=== PATIENT | female | born 1945 | race Hispanic/Latino ===

== ENCOUNTER 2025-10-05 17:04 | Emergency (ER) | payer MEDICARE, BC ==
[~2025-10-05] VITALS: Ht 157.5 cm; Wt 76.2 kg
--- NOTE | 2025-10-05 19:22 | HMCIMG ---
EXAM: CT Thoracic Spine Without IV contrast. CLINICAL HISTORY: Patient status post fall. TECHNIQUE: Axial computed tomography images of the thoracic spine without intravenous contrast. Sagittal and coronal reformatted images were generated. CONTRAST: None. COMPARISON: None provided. FINDINGS: BONES: Mild thoracic dextrocurvature. Multilevel anterior endplate spondylotic changes. Diffuse generalized osteopenia. No acute thoracic fracture or dislocation. ALIGNMENT: Bony alignment is anatomic. DEGENERATIVE CHANGES: No significant central canal or neural foraminal stenosis. SOFT TISSUES: The soft tissues are unremarkable. Atherosclerotic aortic wall calcification. Thorax unremarkable up to extent demonstrated. IMPRESSION: No acute thoracic fracture or dislocation. Mild thoracic dextrocurvature with multilevel anterior endplate spondylotic changes and diffuse generalized osteopenia. /[place]
--- NOTE | 2025-10-05 19:23 | HMCIMG ---
EXAM: CT Lumbar Spine Without IV contrast. CLINICAL HISTORY: Patient status post fall. TECHNIQUE: Axial computed tomography images of the lumbar spine without intravenous contrast. Sagittal and coronal reformatted images were generated. COMPARISON: None provided. FINDINGS: ALIGNMENT: Bony alignment is anatomic. DISCS/DEGENERATIVE CHANGES: Multilevel small endplate spondylosis. Mild to moderate facet arthrosis. Mild disc height loss at L5/S1. No significant degenerative disease elsewhere. BONES: Diffuse generalized osteopenia. At least 10% vertebral body height loss of L2 with subtle anterior superior endplate fracture. No acute fracture or aggressive appearing osseous lesion elsewhere. SOFT TISSUES: Atherosclerotic aortic wall calcification. The soft tissues are otherwise unremarkable. Colonic diverticulosis. IMPRESSION: Subtle superior endplate fracture of L2 with at least 10% vertebral body height loss; recommend MRI correlation if clinically indicated. Diffuse generalized osteopenia. Multilevel small endplate spondylosis with mild to moderate facet arthrosis and mild disc height loss at L5/S1. /[place]
--- NOTE | 2025-10-05 19:52 | HMCIMG ---
EXAM: CR Chest, 1 View. CLINICAL HISTORY: fall COMPARISON: None provided. FINDINGS: LUNGS: The lungs show no infiltrate or other acute finding. PLEURAL SPACES: No evidence of pleural effusion or pneumothorax. MEDIASTINUM: The cardiomediastinal silhouette is within normal limits. BONES: No aggressive appearing osseous lesion seen. IMPRESSION: No acute cardiopulmonary pathology is evident. /[place]
--- NOTE | 2025-10-05 20:30 | ERN ---
General Chief Complaint: Back Pain or Injury Stated Complaint: BACK INJURY S/P FALL Time Seen by MD: 17:12 Time Seen by Midlevel: 17:12 Source: patient History of Present Illness Initial Comments Patient is a 80-year-old female presenting to the emergency department with low back pain after she sustained a mechanical ground level fall. Patient states she slipped and fell onto her back. Denies any head injury or loss of consciousness. The majority of her pain is localized to the lumbar region. Denies being on any blood thinners. Allergies: Coded Allergies: No Known Allergies (Unverified Allergy, Unknown, 10/05/25) Past Medical History Past Medical History: Anxiety, Arthritis, GERD Past Surgical History: Other ROS Dictation CONSTITUTIONAL: Negative except for HPI HEAD/FACE: Negative except for HPI EENT: Negative except for HPI RESPIRATORY: Negative except for HPI GASTROINTESTINAL/ABDOMINAL: Negative except for HPI GENITOURINARY: Negative except for HPI MUSCULOSKELETAL: Negative except for HPI INTEGUMENTARY: Negative except for HPI NEUROLOGICAL/PSYCH: Negative except for HPI HEMATOLOGIC/LYMPHATIC: Negative except for HPI All Systems Negative, Except as noted above. 13 point review of systems assessed and all negative except for above. Physical Exam Physical Exam Dictation Vital Signs reviewed General Appearance: Alert, oriented x 3, no acute distress, well developed, nourished. Head and Face: non-traumatic. Eyes: PERRL, pink conjunctivas, eyelid no trauma, anterior chamber with arcus senilis. Ears: Pinnas intact and no signs of trauma or erythema ear canals clear and no discharge TM no erythema Nose: No discharge, no bleeding. Oropharynx: Mouth normal, tongue pink, pharynx clear,no erythema, tonsils no exudates, no abscesses noted, mucous membrane moist Neck: Supple, non-tender, no thyromegaly, no masses, no JVD, no bruits Breast:Deferred Chest:No tenderness, no crepitus, no paradoxical movement, no retractions Lungs:Clear, well-ventilated, symmetric, no rales, no wheezing, no rhonchi, no stridor, good breath sounds bilaterally Heart: Regular rate, regular rhythm, no murmur, no gallops Vascular: no peripheral edema, Abdomen: Soft, positive bowel sounds, nondistended, no guarding, nontender, no rebound, no masses no hepatomegaly, no splenomegaly, no Landeros's sign, no hernias. Rectal: Deferred Genital: Deferred Neurological: Normal speech, motor function intact, sensory function intact Musculoskeletal: Neck nontender, full range of motion, midline tenderness to the lumbar region, full range of motion, Extremities: nontender, full range of motion Skin: Color pink, dry, no turgor, no rash, no lacerations, no abrasions, no contusions. Lymphatic: Deferred MDM MDM: 80-year-old female presents to the ER with lower back pain after a mechanical ground level fall. On physical examination the patient has midline tenderness to the lumbar region. However, the patient is neurologically intact. She has no numbness, tingling, or loss of urinary/bowel incontinence. She has normal sensation to bilateral lower extremities. A CT scan of the lumbar and thoracic region was obtained which reveals an L2 compression fracture with 10% loss of height however no retropulsion is noted. Patient given pain control in the emergency department and was advised to follow up with Neurosurgery outpatient. Differential diagnosis: Fracture, contusion, dislocation There are no social concerns with this patient. Prescription drug management Prescriptions will include: Toradol Medical management and examination interpretation discussions were had by me with other qualified healthcare professionals as indicated for the patient's care. ED Course Orders Procedure Category Date Status Time Ct Thoracic Spine W/O CT 10/05/25 Resulted Contrast 17:44 Ct Lumbar Spine W/O CT 10/05/25 Resulted Contrast 17:44 Morphine 2mg Syg PHA 10/05/25 Complete (Morphine 2mg Syg) 18:00 Ondansetron 4mg Inj PHA 10/05/25 Complete (Zofran 4mg Inj) 18:00 Chest 1vw RAD 10/05/25 Resulted 17:44 Hydromorphone 1 Mg PHA 10/05/25 Complete Inj (Dilaudid 1mg Inj 20:00 Current Medications Medications (Trade) Dose Ordered Sig/Leti Route PRN Reason Start Time Stop Time Status Last Admin Dose Admin Hydromorphone HCl (DiLAUDid 1MG INJ) 1 mg ONCE ONCE IVP 10/05/25 20:00 10/05/25 20:01 DC 10/05/25 19:58 Morphine Sulfate (morPHINE 2MG SYG) 2 mg ONCE ONCE IVP 10/05/25 18:00 10/05/25 18:01 DC 10/05/25 17:55 Ondansetron HCl (zoFRAN 4MG INJ) 4 mg ONCE ONCE IVP 10/05/25 18:00 10/05/25 18:01 DC 10/05/25 17:55 Vital Signs Date Time Temp Pulse Resp B/P (MAP) Pulse Ox O2 Delivery O2 Flow Rate FiO2 10/05/25 19:50 97.9 75 17 128/50 98 Room Air* 0 21 10/05/25 17:23 63 17 170/71 98 Room Air* 0 21 10/05/25 17:06 98.6 65 20 155/71 99 Room Air DX & DISP Disposition: Discharge Departure Impression: Primary Impression: Compression fracture of L2 lumbar vertebra Condition: Stable Scripts Methocarbamol (Robaxin) 750 Mg Tab 1 TAB PO BID for 30 Days, #60 TAB 0 Refills Prov: MARIA G BOSS PAC 10/05/25 Ketorolac Tromethamine (Ketorolac Tromethamine) 10 Mg Tablet 1 TAB PO BID for pain for 5 Days, #10 TAB 0 Refills Prov: MARIA G BOSS PAC 10/05/25 Referrals: SELF,REFERRAL (PCP) Time of Disposition: 20:26 I have reviewed the case, and I agree with, Diagnosis and Plan I performed the substantive portion of the visit. I have reviewed and personally made and approve the management plan that is documented in the note by myself or the JANETTE. I acknowledge for responsibility for the patient's management plan. MARIA G BOSS PAC Oct 05, 2025 20:30
[2025-10-05 21:47] VITALS: BP 132/53; PULSE 77; RESP 17; TEMP 97.8; O2SAT 98
== END 2025-10-05 21:49 | disposition home or self-care (01) ==
LOC: EDH 17:04
DX: S32.029A Unspecified fracture of second lumbar vertebra, initial encounter for closed fracture (principal); F41.9 Anxiety disorder, unspecified; K21.9 Gastro-esophageal reflux disease without esophagitis; M19.90 Unspecified osteoarthritis, unspecified site; W18.39XA Other fall on same level, initial encounter; Y93.89 Activity, other specified; Y92.89 Other specified places as the place of occurrence of the external cause; Y99.8 Other external cause status
CPT/HCPCS: 99285; 72131; 96374; 96375; 71045; 72128; J1885; J1171; J2270; J2405